=== PATIENT | male | born 1995 | race Two or more races ===

== ENCOUNTER 2017-01-06 20:18 | Outpatient (CLI) | payer SELFPAY ==
[2017-01-06 21:01] LABS: POTASSIUM 4.3 mmol/L (3.5-5.1)
[2017-01-06 21:07] LABS: ALBUMIN 3.9 g/dL (3.4-5.0); BILIRUBIN,TOTAL 0.4 mg/dL (0.2-1.0); TOTAL PROTEIN, SERUM 7.5 g/dL (6.4-8.2)
[2017-01-06 21:12] LABS: BASOPHILS # (AUTO) 0.1 /CMM (0.0-0.2); DIFF TOTAL % 100 %; EOSINOPHILS # (AUTO) 0.1 /CMM (0.0-0.7); EOSINOPHILS % (AUTO) 0.9 % (0.0-6.0); HEMATOCRIT 48 % (39-51); HEMOGLOBIN 16.4 g/dL (13.5-17.5); LYMPHOCYTES # (AUTO) 1.5 /CMM (0.8-4.8); LYMPHOCYTES % (AUTO) 16.5 % (20.0-44.0); MEAN CORPUSCULAR HEMOGLOBIN 32 PG (26.0-33.0); MEAN CORPUSCULAR HGB CONC 35 g/dl (31.0-36.0); MEAN CORPUSCULAR VOLUME 93 fL (80-96); MONOCYTES # (AUTO) 0.8 /CMM (0.1-1.30); MONOCYTES % (AUTO) 9.3 % (2.0-12.0); NEUTROPHILS # (AUTO) 6.4 /CMM (1.8-8.9); NEUTROPHILS % (AUTO) 72.3 % (43.0-81.0); PLATELET COUNT (AUTO) 190 /CMM (150-450); WHITE BLOOD COUNT (AUTO) 8.9 K/uL (4.3-11.0)
[2017-01-06 21:15] LABS: THYROID STIMULATING HORMONE 2.478 uIU/mL (0.358-3.74)
[2017-01-06 21:33] LABS: ERYTHROCYTE SEDIMENTATION RATE 1 MM/HR (0-15)
[2017-01-06] MEDS ORDERED: DEXAMETHASONE 4 MG TABLET ONE (21:54)
[2017-01-06] MEDS ORDERED: DEXAMETHASONE 1 MG TABLET ONE (21:54)
[2017-01-06] MEDS ORDERED: DEXAMETHASONE 1 MG TABLET PO ONE (22:00)
== END 2017-01-06 23:59 | disposition home or self-care (01) ==
LOC: LAB 20:18
PROVIDERS: ATTEND Nurse Practitioner Acute Care
DX: R59.1 Generalized enlarged lymph nodes (principal); B34.9 Viral infection, unspecified
CPT/HCPCS: 36415; 71010; 80053; 83615; 84443; 85025; 85652; J8540 ×3